=== PATIENT | female | born 1950 | race Caucasian/White ===

== ENCOUNTER 2021-01-18 01:13 | Emergency (ER) | payer MEDICARE, MEDICAID ==
[~2021-01-18] VITALS: Ht 162.6 cm; Wt 136.1 kg
[~2021-01-18 01:13] MED LIST: AMLO2.5T2 PO; ARIP10TA9; ARIP2TAB3 PO; LEVA15HF4 IH; METF-440 PO; METO25TA20; METO25TA4 PO; METO25TA6; METO50TA16; RIBA200T4 PO; RISP1TAB7 PO
[2021-01-18 01:45] VITALS: BP 160/90
[2021-01-18] MEDS ORDERED: ZOLP5TAB2 PO (02:00)
== END 2021-01-18 02:20 | disposition home or self-care (01) ==
LOC: ER 01:17
DX: G47.00 Insomnia, unspecified (principal); I10 Essential (primary) hypertension; J44.9 Chronic obstructive pulmonary disease, unspecified; E11.9 Type 2 diabetes mellitus without complications; F31.9 Bipolar disorder, unspecified; M19.90 Unspecified osteoarthritis, unspecified site; Z90.89 Acquired absence of other organs; Z90.49 Acquired absence of other specified parts of digestive tract; Z88.8 Allergy status to other drugs, medicaments and biological substances; Z60.2 Problems related to living alone; Z79.899 Other long term (current) drug therapy; Z79.84 Long term (current) use of oral hypoglycemic drugs

== ENCOUNTER 2021-02-05 23:00 | Emergency (ER) | payer MEDICARE, OTHER ==
[~2021-02-05] VITALS: Ht 167.6 cm; Wt 127.0 kg
[~2021-02-05 23:00] MED LIST changes: +ZOLP5TAB2 PO
--- NOTE | 2021-02-05 23:27 | NUR ---
PATIENT BIBRA60 FROM HOME SEEKING PLACMENT IN A CONVALESCENT HOME. PATIENT ALERT AND OREINTED X3. PATIENT WAS TRANSFERRED BY STRETCHER AND STATES SHE CANNOT AMBULATE LIKE BEFORE.
--- NOTE | 2021-02-05 23:57 | NUR ---
CALLED [facility]. PT NEEDS BARIATRIC BED.
--- NOTE | 2021-02-06 02:56 | NUR ---
PT AWAKE AND ALERT BREATHING EVEN AND UNLABORED. ALL V/S STABLE NO COMPLAINTS AT THIS TIME.
--- NOTE | 2021-02-06 05:29 | NUR ---
pT DISCHARGED HOME IN STABLE CONDITION. WRITTEN AND VERBAL AFTERCARE INSTRUCTIONS PROVIDED TO PATIENT AND SHE VERBALIZED UNDERSTANDING OF INSTRUCTIONS.PT ASSISTED TO TAXI WIT WHEELCHAIR WITHOUT INCIDENT. ALL V/S STABLE AT TIME OF PICKUP. ALL BELONGINGS WITH PATIENT AT TIME OF DISCHARGE.
[2021-02-06 05:32] VITALS: BP 128/77
[2021-02-07] MEDS ORDERED: OMEP20CA15 PO (11:21)
[2021-02-07] MEDS ORDERED: ASCO-352 PO (11:21)
[2021-02-07] MEDS ORDERED: PHYT100T PO (11:21)
[2021-02-07] MEDS ORDERED: OMEG-178 PO (11:21)
[2021-02-07] MEDS ORDERED: GABA-532 PO (11:21)
[2021-02-07] MEDS ORDERED: CHLO25TA2 PO (11:21)
[2021-02-07] MEDS ORDERED: TOPI50TA24 PO (11:21)
[2021-02-07] MEDS ORDERED: VIT1CAPS44 PO (11:21)
[2021-02-07] MEDS ORDERED: OLAN5TAB3 PO (11:21)
[2021-02-07] MEDS ORDERED: ACET-868 PO (11:21)
[2021-02-07] MEDS ORDERED: IRBE300T19 PO (11:21)
[2021-02-07] MEDS ORDERED: PRAZ2CAP2 PO (11:21)
[2021-02-07] MEDS ORDERED: CHOL100062 PO (11:21)
[2021-02-07] MEDS ORDERED: LOVA40TA2 PO (11:21)
[2021-02-07] MEDS ORDERED: MEMA5TAB42 PO (11:21)
[2021-02-07] MEDS ORDERED: ALLO100T PO (11:21)
[2021-02-11] MEDS ORDERED: Aspirin Ec PO (17:47)
== END 2021-02-06 05:32 | disposition home or self-care (01) ==
LOC: ER 23:02
DX: R52 Pain, unspecified (principal); Z88.8 Allergy status to other drugs, medicaments and biological substances; Z79.899 Other long term (current) drug therapy

== ENCOUNTER 2021-02-06 23:05 | Inpatient (IN) | payer MEDICARE, MEDICAID ==
[~2021-02-06] VITALS: Ht 165.1 cm; Wt 143.0 kg
--- NOTE | 2021-02-07 00:03 | NUR ---
EMT AT BEDSIDE FOR EKG
--- NOTE | 2021-02-07 00:10 | NUR ---
[facility] SWAB COLLECTED AND SENT TO LAB. PATIENT'S BELONGINGS LIST DONE.
[2021-02-07 00:37] LABS: BASOPHILS # (AUTO) 0.1 K/uL (0.0-0.2); BASOPHILS % (AUTO) 0.9 % (0.0-2.0); EOSINOPHILS % (AUTO) 4.7 % (0.0-6.0); HEMATOCRIT 42 % (33-45); HEMOGLOBIN 14.3 g/dL (11.5-14.8); LYMPHOCYTES # (AUTO) 1.7 K/uL (0.8-4.8); LYMPHOCYTES % (AUTO) 19.6 % (20.0-44.0); MEAN CORPUSCULAR HGB CONC 34 g/dl (31.0-36.0); MEAN CORPUSCULAR VOLUME 97 fL (82-100); MONOCYTES # (AUTO) 0.6 K/uL (0.1-1.30); MONOCYTES % (AUTO) 6.9 % (2.0-12.0); NEUTROPHILS # (AUTO) 5.9 K/uL (1.8-8.9); NEUTROPHILS % (AUTO) 67.9 % (43.0-81.0); PLATELET COUNT (AUTO) 184 K/uL (150-450); RED BLOOD CELL COUNT(AUTO) 4.32 MIL/uL (4.0-5.2); WHITE BLOOD COUNT (AUTO) 8.7 K/uL (4.3-11.0)
[2021-02-07 00:44] LABS: CALCIUM, SERUM 8.1 mg/dL (8.5-10.1); CARBON DIOXIDE 26 mmol/L (21-32); CHLORIDE 104 mmol/L (98-107); CREATININE 2.4 mg/dL (0.6-1.3); GLUCOSE 126 mg/dL (74-106); POTASSIUM 3.6 mmol/L (3.5-5.1); SODIUM SERUM 139 mmol/L (136-145); UREA NITROGEN, BLOOD 56 mg/dL (7-18)
--- NOTE | 2021-02-07 02:55 | NUR ---
FOLLOWED UP WITH [facility]
--- NOTE | 2021-02-07 04:05 | NUR ---
bed 115-1
[2021-02-07 04:20] VITALS: BP 141/92
--- NOTE | 2021-02-07 04:20 | NUR ---
MS RN ADMITTING NOTE PT TRANSPORTED BY STRETCHER TO UNIT AT THIS TIME FROM ED. RECEIVED REPORT FROM SLAVA JO @ ED. PT IS A/O X4, ABLE TO COMMUNICATE NEEDS. NO SOB NOTED, NO C/O PAIN AT THIS TIME. NO S/S OF ANY APPARENT DISTRESS NOTED. RESPIRATIONS EVEN AND UNLABORED. ACTIVE BOWEL SOUNDS AUSCULTATED THROUGHOUT, ABDOMEN IS NON DISTENDED. SKIN IS INTACT, WARM TO TOUCH. CAPILLARY REFILL < 3 SECS, PULSES PRESENT BILATERALLY, GOOD CIRCULATION NOTED. IV ACCESS NOTED IN R HAND G # 22, INTACT, PATENT AND FLUSHING WELL. PT'S BELONGINGS ACCOUNTED FOR AND KEPT AT BEDSIDES PER PT REQUEST. ASPIRATION PRECAUTIONS IN PLACE AND MAINTAINED AT ALL TIMES, BED IN LOWEST, LOCKED POSITION, SIDE RAILS UP X2, TABLE AND CALL LIGHT WITHIN REACH. WILL CONTINUE WITH PLAN OF CARE.
--- NOTE | 2021-02-07 04:25 | NUR ---
REPORT GIVE TO SABA PEDERSEN
[2021-02-07] MEDS ORDERED: ONDANSETRON HCL/PF 4 MG/2 ML VIAL IVP PRN (04:30)
[2021-02-07] MEDS ORDERED: Z GUARD REMEDY 2 OZ OINT TP PRN (04:30)
[2021-02-07] MEDS ORDERED: ACETAMINOPHEN 325 MG TABLET PO PRN (04:30)
[2021-02-07] MEDS ORDERED: IV NS 0.9% 1,000 ML IV PRN (04:30)
--- NOTE | 2021-02-07 07:23 | NUR ---
MS RN OPENING NOTES RECEIVED PATIENT RESTING IN BED. PATIENT IS A/O X4. PATIENT IS BREATHING EVENLY AND NONLABORED ON ROOM AIR. NO SIGNS OF DISTRESS NOTED. PATIENT DENIES PAIN OR DISCOMFORT AT THIS TIME. PATIENT HAS IV ACCESS TO R HAND # 22 PATENT AND INTACT. SAFETY MEASURES IN PLACE, BED LOW LOCKED AND CALL LIGHT WITHIN REACH. WILL CONTINUE TO MONITOR
[2021-02-07 08:00] VITALS: BP 132/77
[2021-02-07] MEDS ORDERED: METFORMIN 500 MG TABLET PO SCH (08:00)
[2021-02-07] MEDS: ARIPIPRAZOLE 2 MG TABLET PO SCH (08:18)
[2021-02-07] MEDS: risperiDONE 1 MG TABLET PO SCH (08:18)
[2021-02-07] MEDS: AMLODIPINE BESYLATE 2.5 MG TABLET PO SCH (08:18)
[2021-02-07] MEDS: ASPIRIN EC 81 MG TABLET.DR PO SCH (08:18)
[2021-02-07] MEDS: METOPROLOL SUCCINATE 25 MG TAB.SR.24H PO SCH (08:19)
[2021-02-07] MEDS: HEPARIN SODIUM, PORCINE 5000 UNITS/1 ML VIAL SQ SCH ×2 (08:25→21:31)
[2021-02-07] MEDS ORDERED: PRAZ2CAP2 PO (11:21)
[2021-02-07] MEDS ORDERED: TOPI50TA24 PO (11:21)
[2021-02-07] MEDS ORDERED: OLAN5TAB3 PO (11:21)
[2021-02-07] MEDS ORDERED: IRBE300T19 PO (11:21)
[2021-02-07] MEDS ORDERED: OMEG-178 PO (11:21)
[2021-02-07] MEDS ORDERED: VIT1CAPS44 PO (11:21)
[2021-02-07] MEDS ORDERED: MEMA5TAB42 PO (11:21)
[2021-02-07] MEDS ORDERED: LOVA40TA2 PO (11:21)
[2021-02-07] MEDS ORDERED: GABA-532 PO (11:21)
[2021-02-07] MEDS ORDERED: CHOL100062 PO (11:21)
[2021-02-07] MEDS ORDERED: PHYT100T PO (11:21)
[2021-02-07] MEDS ORDERED: ACET-868 PO (11:21)
[2021-02-07] MEDS ORDERED: CHLO25TA2 PO (11:21)
[2021-02-07] MEDS ORDERED: OMEP20CA15 PO (11:21)
[2021-02-07] MEDS ORDERED: ASCO-352 PO (11:21)
[2021-02-07] MEDS ORDERED: ALLO100T PO (11:21)
--- NOTE | 2021-02-07 14:09 | NUR ---
RN NOTE PATIENT WAS HAVING US OF KIDNEYS, NOTED WITH 800 ML OF URINE RETAINED, NOTIFIED WHO GAVE NEW ORDER TO PLACE PETE CATHETER, PETE PLACE 16 FR 10CC, 600 ML OUT, WILL CONTINUE TO MONITOR
[2021-02-07 16:10] VITALS: BP 130/64
[2021-02-07] MEDS: GABAPENTIN 100 MG CAPSULE PO SCH (16:57)
[2021-02-07] MEDS: OLANZAPINE 5 MG TABLET PO SCH (16:57)
[2021-02-07] MEDS: MEMANTINE HCL 5 MG TABLET PO SCH (16:57)
[2021-02-07] MEDS: ZOLPIDEM TARTRATE 5 MG TABLET PO SCH (18:00)
[2021-02-07] MEDS: ATORVASTATIN 10 MG TABLET PO SCH (18:06)
--- NOTE | 2021-02-07 18:57 | NUR ---
MS RN CLOSING NOTES PATIENT RESTING IN BED, AWAKE, A/O X4. REMAINS ON ROOM AIR, BREATHING EVEN AND NONLABORED. NO SIGNS OF ACUTE DISTRESS NOTED. PATIENT DENIES PAIN DISCOMFORT AT THIS TIME. ALL DUE MEDS GIVEN, TOLERATED WELL. REFUSED AMBIEN PER PT IT GIVES HER NIGHTMARES. WITH IV ACCESS ON R HAND # 22 PATENT AND INTACT, NS @75 ML/HOUR RUNNING. SAFETY MEASURES IN PLACE, BED LOW LOCKED AND CALL LIGHT WITHIN REACH. WILL ENDORSE TO NEXT SHIFT.
--- NOTE | 2021-02-07 19:45 | NUR ---
RN OPENING NOTES: RECEIVED PATIENT IN BED ALERT, ORIENTED X4, VERBALLY RESPONSIVE. ON ROOM AIR, NO SOB NOTED. BREATHING EVEN AND UNLABORED. NO C/O PAIN OR DISCOMFORT. NO ACUTE DISTRESS. IV ACCESS ON RT HAND #22G INTACT AND PATENT. RUNNING NS 75CC/HR. PETE CATHETER IN PLACE, INTACT W/ YELLOWISH URINE. NO HEMATURIA NOTED. ALL SAFETY MEASURE IN PLACE. BED IN LOW POSITION AND LOCKED. PLACE CALL LIGHT WITH IN REACH. WILL CONTINUE TO MONITOR
[2021-02-07 19:48] LABS: CHOLESTEROL 113 mg/dL (<200); HDL CHOLESTEROL 37 mg/dL (40-60); LDL 56 mg/dL (0-99); THYROID STIMULATING HORMONE 0.535 uIU/mL (0.358-3.74); TRIGLYCERIDES 151 mg/dL (30-150)
[2021-02-07 20:00] VITALS: BP 105/66
[2021-02-07 20:33] VITALS: BP 105/56
[2021-02-08 04:00] VITALS: BP 149/76
[2021-02-08 04:16] VITALS: BP 149/76
[2021-02-08 05:18] LABS: BASOPHILS % (AUTO) 0.5 % (0.0-2.0); EOSINOPHILS % (AUTO) 5.5 % (0.0-6.0); HEMATOCRIT 38 % (33-45); HEMOGLOBIN 12.7 g/dL (11.5-14.8); LYMPHOCYTES # (AUTO) 1.8 K/uL (0.8-4.8); MEAN CORPUSCULAR HGB CONC 34 g/dl (31.0-36.0); MEAN CORPUSCULAR VOLUME 99 fL (82-100); MONOCYTES # (AUTO) 0.6 K/uL (0.1-1.30); MONOCYTES % (AUTO) 8.4 % (2.0-12.0); NEUTROPHILS # (AUTO) 4.8 K/uL (1.8-8.9); NEUTROPHILS % (AUTO) 62.6 % (43.0-81.0); PLATELET COUNT (AUTO) 173 K/uL (150-450); RED BLOOD CELL COUNT(AUTO) 3.81 MIL/uL (4.0-5.2); WHITE BLOOD COUNT (AUTO) 7.6 K/uL (4.3-11.0)
[2021-02-08 05:24] LABS: CALCIUM, SERUM 8.3 mg/dL (8.5-10.1); CARBON DIOXIDE 24 mmol/L (21-32); CHLORIDE 105 mmol/L (98-107); CREATININE 2.4 mg/dL (0.6-1.3); GLUCOSE 100 mg/dL (74-106); PHOSPHORUS 4.8 mg/dL (2.5-4.9); SODIUM SERUM 139 mmol/L (136-145); UREA NITROGEN, BLOOD 55 mg/dL (7-18)
--- NOTE | 2021-02-08 06:20 | NUR ---
RN CLOSING NOTES: PATIENT IN BED ALERT, ORIENTED X4, VERBALLY RESPONSIVE. ON ROOM AIR, O2 SAT 99%. BREATHING EVEN AND UNLABORED. NO C/O PAIN OR DISCOMFORT. NO ACUTE DISTRESS. IV ACCESS ON RT HAND #22G INTACT AND PATENT. ALL DUE MEDS GIVEN PER ORDER AND PT TOLERATED WELL. PETE CATHETER IN PLACE, INTACT W/ YELLOWISH URINE, 1100 OUTPUT. NO HEMATURIA. ALL SAFETY MEASURE IN PLACE. BED IN LOW POSITION AND LOCKED. PLACE CALL LIGHT WITH IN REACH. WILL ENDORSE TO MORNING SHIFT NURSE.
[2021-02-08] MEDS: PANTOPRAZOLE 40 MG TABLET.DR PO SCH (07:44)
--- NOTE | 2021-02-08 07:58 | NUR ---
RN OPENING NOTES RECEIVED PATIENT IN BED ALERT, ORIENTED X4, VERBALLY RESPONSIVE. ON ROOM AIR, NO SOB NOTED. BREATHING EVEN AND UNLABORED. NO C/O PAIN OR DISCOMFORT. NO ACUTE DISTRESS. IV ACCESS ON RT HAND #22G INTACT AND PATENT. PETE CATHETER IN PLACE, INTACT W/ YELLOWISH URINE. NO HEMATURIA NOTED. ALL SAFETY MEASURE IN PLACE. BED IN LOW POSITION AND LOCKED. PLACE CALL LIGHT WITH IN REACH. WILL CONTINUE TO MONITOR.
[2021-02-08] MEDS: GABAPENTIN 100 MG CAPSULE PO SCH ×2 (09:10→16:18)
[2021-02-08] MEDS: ASPIRIN EC 81 MG TABLET.DR PO SCH (09:10)
[2021-02-08] MEDS: AMLODIPINE BESYLATE 2.5 MG TABLET PO SCH (09:11)
[2021-02-08] MEDS: ALLOPURINOL 100 MG TABLET PO SCH (09:11)
[2021-02-08] MEDS: MEMANTINE HCL 5 MG TABLET PO SCH ×2 (09:11→16:18)
[2021-02-08] MEDS: ASCORBIC ACID 500 MG TABLET PO SCH (09:11)
[2021-02-08] MEDS: OLANZAPINE 5 MG TABLET PO SCH (09:11)
[2021-02-08] MEDS: risperiDONE 1 MG TABLET PO SCH (09:11)
[2021-02-08] MEDS: METOPROLOL SUCCINATE 25 MG TAB.SR.24H PO SCH (09:12)
[2021-02-08] MEDS: ARIPIPRAZOLE 2 MG TABLET PO SCH (09:12)
[2021-02-08] MEDS: HEPARIN SODIUM, PORCINE 5000 UNITS/1 ML VIAL SQ SCH ×2 (09:13→20:50)
[2021-02-08 12:00] VITALS: BP 115/82
--- NOTE | 2021-02-08 14:27 | NUR ---
SS Consult: SS consult for discharge planning. Pt. Is a 70-year-old female. Pt. demonstrates adequate insight to the reason for hospitalization. Pt. was oriented x4, alert, and cooperative. During interview, pt. was capable of following directions, made appropriate eye-contact, and appeared well-groomed. Pt.s speech was at a normal rate. Pt.s mood was elevated. SW explored pt.s hx of mental health and substance abuse. Pt. reported no hx of mental health, substance abuse, suicidal or homicidal. Pt. denies auditory hallucinations, visual hallucinations, paranoia, or delusions. SW explored pt.s living situation. Per pt., she lives alone [[address] [place] [address]]. Plan: Per pt., she cannot care for herself at home anymore and wants placement. Pt. mentioned that she does not want a SNF but is considering [facility]. SW spoke with CM and they will arrange her placement once discharge. SW provided available resources and pt. denied interest at this time.
[2021-02-08] MEDS: ZOLPIDEM TARTRATE 5 MG TABLET PO SCH (18:00)
[2021-02-08] MEDS: ATORVASTATIN 10 MG TABLET PO SCH (18:00)
--- NOTE | 2021-02-08 19:09 | NUR ---
RN CLOSING NOTES PATIENT IN BED ALERT, ORIENTED X4, VERBALLY RESPONSIVE. ON ROOM AIR, O2 SAT 99%. BREATHING EVEN AND UNLABORED. NO C/O PAIN OR DISCOMFORT. NO ACUTE DISTRESS. IV ACCESS ON RT HAND #22G INTACT AND PATENT. ALL DUE MEDS GIVEN PER ORDER AND PT TOLERATED WELL. PETE CATHETER IN PLACE, INTACT W/ YELLOWISH URINE, 1100 OUTPUT. NO HEMATURIA. ALL SAFETY MEASURE IN PLACE. BED IN LOW POSITION AND LOCKED. PLACE CALL LIGHT WITH IN REACH. WILL ENDORSE TO PIG BREEDER NURSE.
[2021-02-08 20:00] VITALS: BP 134/73
[2021-02-09 04:00] VITALS: BP 152/69
--- NOTE | 2021-02-09 07:37 | NUR ---
RN NOTES RECEIVED CARE OF PATIENT WHILE PATIENT IN BED, ALERT, ORIENTED X4, VERBALLY RESPONSIVE. ON ROOM AIR, O2 SAT 97%. BREATHING EVEN AND UNLABORED. NO C/O PAIN OR DISCOMFORT. NO ACUTE DISTRESS. IV ACCESS ON RT HAND #22G INTACT AND PATENT. PETE CATHETER IN PLACE, INTACT. NO HEMATURIA. ALL SAFETY MEASURE IN PLACE. BED IN LOW POSITION AND LOCKED. PLACED CALL LIGHT WITH IN REACH. WILL CONTINUE TO MONITOR FOR ANY CHANGES.
[2021-02-09] MEDS: PANTOPRAZOLE 40 MG TABLET.DR PO SCH (07:57)
[2021-02-09] MEDS: GABAPENTIN 100 MG CAPSULE PO SCH ×2 (08:21→18:03)
[2021-02-09] MEDS: ARIPIPRAZOLE 2 MG TABLET PO SCH (08:21)
[2021-02-09] MEDS: OLANZAPINE 5 MG TABLET PO SCH ×2 (08:21→21:55)
[2021-02-09] MEDS: MEMANTINE HCL 5 MG TABLET PO SCH (08:21)
[2021-02-09] MEDS: ALLOPURINOL 100 MG TABLET PO SCH (08:22)
[2021-02-09] MEDS: risperiDONE 1 MG TABLET PO SCH (08:22)
[2021-02-09] MEDS: ASCORBIC ACID 500 MG TABLET PO SCH (08:23)
[2021-02-09] MEDS: ASPIRIN EC 81 MG TABLET.DR PO SCH (08:23)
[2021-02-09] MEDS: METOPROLOL SUCCINATE 25 MG TAB.SR.24H PO SCH (09:01)
[2021-02-09] MEDS: AMLODIPINE BESYLATE 2.5 MG TABLET PO SCH (09:01)
[2021-02-09] MEDS: HEPARIN SODIUM, PORCINE 5000 UNITS/1 ML VIAL SQ SCH (09:03)
--- NOTE | 2021-02-09 11:04 | NUR ---
RN OPENING NOTES RECEIVED PATIENT IN BED ALERT, ORIENTED X4, VERBALLY RESPONSIVE. ON ROOM AIR, NO SOB NOTED. BREATHING EVEN AND UNLABORED. NO C/O PAIN OR DISCOMFORT. NO ACUTE DISTRESS. IV ACCESS ON RT HAND #22G INTACT AND PATENT. PETE CATHETER IN PLACE, INTACT W/ YELLOWISH URINE. NO HEMATURIA NOTED. ALL SAFETY MEASURES IN PLACE. BED IN LOW POSITION AND LOCKED. PLACE CALL LIGHT WITH IN REACH. SIDE RAILS UP X2. WILL CONTINUE TO MONITOR.
[2021-02-09 12:00] VITALS: BP 133/63
[2021-02-09] MEDS: ZOLPIDEM TARTRATE 5 MG TABLET PO SCH (18:00)
[2021-02-09] MEDS: ATORVASTATIN 10 MG TABLET PO SCH (18:04)
--- NOTE | 2021-02-09 19:30 | NUR ---
RN CLOSING NOTES PATIENT IN BED ALERT, ORIENTED X4, VERBALLY RESPONSIVE. ON ROOM AIR, O2 SAT 99%. BREATHING EVEN AND UNLABORED. NO C/O PAIN OR DISCOMFORT. NO ACUTE DISTRESS. IV ACCESS ON RT HAND #22G INTACT AND PATENT. ALL DUE MEDS GIVEN PER ORDER AND PT TOLERATED WELL. PETE CATHETER IN PLACE, INTACT W/ SLIGHT HEMATURIA NOTED. ALL SAFETY MEASURE IN PLACE. BED IN LOW POSITION AND LOCKED. PLACE CALL LIGHT WITH IN REACH. WILL ENDORSE TO LICENSED MASSAGE THERAPIST NURSE.
--- NOTE | 2021-02-09 19:40 | NUR ---
RN OPENING NOTES: RECEIVED PATIENT IN BED SITTING POSITION, ALERT, ORIENTED X4, VERBALLY RESPONSIVE. ON ROOM AIR, NO SOB NOTED. BREATHING EVEN AND UNLABORED. NO C/O PAIN OR DISCOMFORT. NO ACUTE DISTRESS. IV ACCESS ON RT HAND #22G INTACT AND PATENT. PETE CATHETER IN PLACE, NOTED HEMATURIA. MADE AWARE DROliverio CRAPS DEALER DR. THOMPSON. WAITING FOR CALL BACK. ALL SAFETY MEASURE IN PLACE. BED IN LOW POSITION AND LOCKED. PLACE CALL LIGHT WITH IN REACH. WILL CONTINUE TO MONITOR
[2021-02-09 20:00] VITALS: BP 146/93
--- NOTE | 2021-02-09 20:42 | NUR ---
RN NOTES: DR. THOMPSON TEXT BACK. TO KEEP THE PETE CATHETER ON PLACE DUE TO URINARY RETENTION. HOLD THE HEPARIN AND NEW ORDER FOR [facility] COLLECTION. ORDER NOTED AND CARRIED OUT.
[2021-02-10 02:46] LABS: BILIRUBIN,URINE NEGATIVE (NEGATIVE); COLOR,URINE YELLOW (YELLOW); LEUKOCYTE ESTERASE ,URINE NEGATIVE (NEGATIVE); NITRITE, URINE NEGATIVE (NEGATIVE); PROTEIN,URINE NEGATIVE (NEGATIVE); UGLUCOSE NEGATIVE (NEGATIVE); UROBILINOGEN,URINE 0.2 EU/dL (0.2)
[2021-02-10 02:55] LABS: RBC,URINE TOO NUMEROUS TO COUN /HPF (0-2)
[2021-02-10 02:56] LABS: BACTERIA,URINE Few /HPF (None Seen); SQUAMOUS EPITHELIAL CELL,UR None Seen /HPF (None Seen)
[2021-02-10 04:00] VITALS: BP 159/84
[2021-02-10 06:35] LABS: BASOPHILS % (AUTO) 0.4 % (0.0-2.0); HEMATOCRIT 39 % (33-45); HEMOGLOBIN 13.3 g/dL (11.5-14.8); LYMPHOCYTES # (AUTO) 1.4 K/uL (0.8-4.8); LYMPHOCYTES % (AUTO) 17.4 % (20.0-44.0); MEAN CORPUSCULAR HGB CONC 34 g/dl (31.0-36.0); MEAN CORPUSCULAR VOLUME 98 fL (82-100); MONOCYTES # (AUTO) 0.8 K/uL (0.1-1.30); MONOCYTES % (AUTO) 9.9 % (2.0-12.0); NEUTROPHILS # (AUTO) 5.4 K/uL (1.8-8.9); NEUTROPHILS % (AUTO) 66.3 % (43.0-81.0); PLATELET COUNT (AUTO) 182 K/uL (150-450); RED BLOOD CELL COUNT(AUTO) 3.96 MIL/uL (4.0-5.2); WHITE BLOOD COUNT (AUTO) 8.2 K/uL (4.3-11.0)
--- NOTE | 2021-02-10 06:44 | NUR ---
RN CLOSING NOTES: PATIENT IN BED SLEEPING AT THIS MOMENT, BUT EASILY AROUSABLE, ALERT, ORIENTED X4, VERBALLY RESPONSIVE. ON ROOM AIR, O2 SAT 97%. NO SOB. BREATHING EVEN AND UNLABORED. NO C/O PAIN OR DISCOMFORT. NO ACUTE DISTRESS. IV ACCESS ON RT HAND #22G INTACT AND PATENT. PETE CATHETER IN PLACE, STILL NOTED SCANT OF BLEEDING. ENCOURAGE PT TO INCREASE FLUID INTAKE. URINALYSIS DONE. ALL DUE MEDS GIVEN, HEPARIN ON HOLD DUE TO HEMATURIA. ALL SAFETY MEASURE IN PLACE. BED IN LOW POSITION AND LOCKED. PLACE CALL LIGHT WITH IN REACH. WILL ENDORSE TO MORNING SHIFT NURSE.
[2021-02-10 07:12] LABS: CALCIUM, SERUM 8.9 mg/dL (8.5-10.1); CARBON DIOXIDE 27 mmol/L (21-32); CHLORIDE 104 mmol/L (98-107); CREATININE 2.1 mg/dL (0.6-1.3); GLUCOSE 106 mg/dL (74-106); MAGNESIUM 1.8 mg/dL (1.8-2.4); PHOSPHORUS 4.6 mg/dL (2.5-4.9); POTASSIUM 4.2 mmol/L (3.5-5.1); SODIUM SERUM 141 mmol/L (136-145); UREA NITROGEN, BLOOD 44 mg/dL (7-18)
[2021-02-10] MEDS: AMLODIPINE BESYLATE 2.5 MG TABLET PO SCH (08:23)
[2021-02-10] MEDS: GABAPENTIN 100 MG CAPSULE PO SCH ×2 (08:23→17:15)
[2021-02-10] MEDS: ASPIRIN EC 81 MG TABLET.DR PO SCH (08:23)
[2021-02-10] MEDS: ALLOPURINOL 100 MG TABLET PO SCH (08:24)
[2021-02-10] MEDS: ASCORBIC ACID 500 MG TABLET PO SCH (08:24)
[2021-02-10] MEDS: METOPROLOL SUCCINATE 25 MG TAB.SR.24H PO SCH (08:24)
[2021-02-10] MEDS: PANTOPRAZOLE 40 MG TABLET.DR PO SCH (08:24)
[2021-02-10] MEDS ORDERED: ARIPIPRAZOLE 2 MG TABLET PO SCH (09:00)
[2021-02-10] MEDS: ARIPIPRAZOLE 5 MG TABLET PO SCH (09:08)
--- NOTE | 2021-02-10 09:34 | NUR ---
RN OPENING NOTE PATIENT IN BED SLEEPING AT THIS MOMENT, BUT EASILY AROUSABLE, ALERT, ORIENTED X4, VERBALLY RESPONSIVE. ON ROOM AIR, O2 SAT 97%. NO SOB. BREATHING EVEN AND UNLABORED. IV ACCESS ON RT HAND #22G INTACT AND PATENT. PETE CATHETER IN PLACE, ENCOURAGE PT TO INCREASE FLUID. ALL SAFETY MEASURE IN PLACE. BED IN LOW POSITION AND LOCKED. PLACE CALL LIGHT WITH IN REACH.
--- NOTE | 2021-02-10 09:47 | NUR ---
RN NOTE REPORT REC'D AT [facility] FROM ELIAN PEDERSEN FOR VENUS. PT IS AWAKE ALERT, ORIENTED X4. IN NO ACUTE DISTRESS. BREATHING UNLABORED. NO C/O CHEST PAIN. SL TO RH G22 PATENT AND INTACT. PT STATES THAT SHE HAD NO BM FOR 6 DAYS. NEEDS STOOL SPOFTENER SHE STATES. PETE CATHETER TO GRAVITY DRAINING YELLOW URINE.
[2021-02-10] MEDS ORDERED: BISACODYL SUPP (10 MG) 10 MG/SUPP.RECT SUPP.RECT RC PRN (10:30)
--- NOTE | 2021-02-10 10:39 | NUR ---
RN NOTE MESSAGE REC'D BY DR. SOW RE: CONSTIPATION WITH ORDER NOTED.
--- NOTE | 2021-02-10 11:00 | NUR ---
RN NOTE [facility] SUPPOSITORY GIVEN SC FOR CONSTIPATION. REPOSITIONED PATIENT FOR COMFORT. NEEDS ATTENDED PROMPTLY.
[2021-02-10 16:00] VITALS: BP 134/83
[2021-02-10] MEDS: ATORVASTATIN 10 MG TABLET PO SCH (17:16)
[2021-02-10] MEDS: DOCUSATE SODIUM 100 MG CAPSULE PO SCH (17:25)
[2021-02-10] MEDS: ZOLPIDEM TARTRATE 5 MG TABLET PO SCH (17:38)
--- NOTE | 2021-02-10 18:43 | NUR ---
RN NOTE PATIENT IS LYING IN BED. NOT IN RESPIRATORY DISTRESS. DENIES CHEST PAIN OR SOB. PETE CATH TO GRAVITY DRAINING CLEAR YELLOW URINE. SL TO RH PATENT AND INTACT. REPOSITIONED FOR COMFORT. ALL NEEDS ATTENDED. SAFETY PRECAUTIONS IN PLACE. CALL LIGHT WITHIN REACH. WILL ENDORSE TO NOC RN FOR VENUS.
--- NOTE | 2021-02-10 19:40 | NUR ---
RN OPENING NOTES: RECEIVED PATIENT IN BED SITTING POSITION, ALERT, ORIENTED X4, VERBALLY RESPONSIVE. ON ROOM AIR, NO SOB. BREATHING EVEN AND UNLABORED. NO C/O PAIN OR DISCOMFORT. NO ACUTE DISTRESS. IV ACCESS ON RT HAND #22G INTACT AND PATENT. PETE CATHETER IN PLACE W/ YELLOWISH URINE. NO HEMATURIA. ALL SAFETY MEASURE IN PLACE. BED IN LOW POSITION AND LOCKED. PLACE CALL LIGHT WITH IN REACH. WILL CONTINUE TO MONITOR
[2021-02-10 20:00] VITALS: BP 147/81
[2021-02-10] MEDS: OLANZAPINE 5 MG TABLET PO SCH (21:18)
--- NOTE | 2021-02-10 21:40 | NUR ---
RN NOTES: GAVE REPORT TO [facility] NURSE MINOR. PT PCR NEGATIVE. TRANSFERRED PT TO [facility] IN STABLE CONDITION. V/S STABLE. COOPERATIVE WITH CARE. NO RESPIRATORY DISTRESS NOTED. DUE MED GIVEN PER ORDER AND TOLERATED WELL. URINE OUTPUT IN PETE CATHETER 500ML. SCANT AMOUNT OF HEMATURIA NOTED. ENDORSED TO THE NURSE.
--- NOTE | 2021-02-10 21:41 | NUR ---
MS RN NOTES: RECEIVED REPORT FROM JOSÉ MIGUEL RN JEFF. PATIENT BROUGHT UP TO MS FLOOR VIA BED AND RECEIVED AT APPROXIMATELY 2150. INTRODUCED MYSELF TO PATIENT AT BEDSIDE. PATIENT COMMUNICATIVE, A&OX4. NAD. IN STABLE CONDITION. REQUESTING WATER AND SNACKS. SNACKS AND WATER GIVEN PER REQUEST. PATIENT EATING AND DRINKING INDEPENDENTLY AND WITHOUT COMPLICATION. PATIENT ADVISED ON REPOSITIONING AND REDISTRIBUTING WEIGHT TO PREVENT SKIN BREAKDOWN. PATIENT VERBALIZES UNDERSTANDING AND DEMONSTRATES REPOSITIONING WITH MINIMAL ASSIST. SKIN OBSERVED TO BE INTACT THROUGHOUT AT THIS TIME. SL TO R HAND FLUSHED AND PATENT. DRESSING C/D/I.
[2021-02-11] VITALS: BP 108/54
[2021-02-11 06:42] LABS: BASOPHILS # (AUTO) 0.1 K/uL (0.0-0.2); BASOPHILS % (AUTO) 0.6 % (0.0-2.0); EOSINOPHILS % (AUTO) 6.8 % (0.0-6.0); HEMATOCRIT 39 % (33-45); HEMOGLOBIN 13.4 g/dL (11.5-14.8); LYMPHOCYTES # (AUTO) 1.8 K/uL (0.8-4.8); LYMPHOCYTES % (AUTO) 19.8 % (20.0-44.0); MEAN CORPUSCULAR HGB CONC 34 g/dl (31.0-36.0); MEAN CORPUSCULAR VOLUME 98 fL (82-100); MONOCYTES # (AUTO) 0.7 K/uL (0.1-1.30); MONOCYTES % (AUTO) 8.1 % (2.0-12.0); NEUTROPHILS # (AUTO) 5.9 K/uL (1.8-8.9); NEUTROPHILS % (AUTO) 64.7 % (43.0-81.0); PLATELET COUNT (AUTO) 195 K/uL (150-450); WHITE BLOOD COUNT (AUTO) 9.1 K/uL (4.3-11.0)
[2021-02-11 07:34] LABS: CALCIUM, SERUM 8.9 mg/dL (8.5-10.1); CARBON DIOXIDE 23 mmol/L (21-32); CHLORIDE 102 mmol/L (98-107); GLUCOSE 125 mg/dL (74-106); POTASSIUM 3.9 mmol/L (3.5-5.1); SODIUM SERUM 138 mmol/L (136-145); UREA NITROGEN, BLOOD 42 mg/dL (7-18)
[2021-02-11 07:35] LABS: MAGNESIUM 1.7 mg/dL (1.8-2.4); PHOSPHORUS 5.2 mg/dL (2.5-4.9)
--- NOTE | 2021-02-11 07:42 | NUR ---
MS RN CLOSING NOTES: REPORTED OFF TO ONCOMING RN. PATIENT IN NAD AND VSS AT THIS TIME. ALERT AND ORIENTED TO BASELINE. CALM AND COMMUNICATIVE.
--- NOTE | 2021-02-11 07:52 | NUR ---
RN OPENING NOTES PATIENT IN BED RESTING, AWAKE. A/O X4. NO S/S OF PAIN NOTED AT THIS TIME. ON ROOM AIR, NO DISTRESS OR SHORTNESS OF BREATH NOTED. IV ACCESS R HAND, INTACT AND PATENT. FALL AND SAFETY MEASURES IN PLACE, BED ALARM ON, BED IN LOW AND LOCK POSITION, CALL LIGHT AND TABLE WITHIN EASY REACH, SIDE RAILS UP X2. WILL CONTINUE TO MONITOR.
[2021-02-11 08:00] VITALS: BP 165/78
[2021-02-11] MEDS: METOPROLOL SUCCINATE 25 MG TAB.SR.24H PO SCH (09:00)
[2021-02-11] MEDS ORDERED: ZOLPIDEM TARTRATE 5 MG TABLET PO PRN (09:00)
[2021-02-11] MEDS: DOCUSATE SODIUM 100 MG CAPSULE PO SCH ×2 (09:05→17:21)
[2021-02-11] MEDS: ASPIRIN EC 81 MG TABLET.DR PO SCH (09:06)
[2021-02-11] MEDS: ASCORBIC ACID 500 MG TABLET PO SCH (09:06)
[2021-02-11] MEDS: PANTOPRAZOLE 40 MG TABLET.DR PO SCH (09:07)
[2021-02-11] MEDS: GABAPENTIN 100 MG CAPSULE PO SCH ×2 (09:07→17:21)
[2021-02-11] MEDS: ALLOPURINOL 100 MG TABLET PO SCH (09:07)
[2021-02-11] MEDS: AMLODIPINE BESYLATE 2.5 MG TABLET PO SCH (09:08)
[2021-02-11] MEDS: ARIPIPRAZOLE 5 MG TABLET PO SCH (09:13)
[2021-02-11] MEDS ORDERED: Magnesium 1GM/D5W 100ML PREMIX 100 ML IV SCH (10:30)
[2021-02-11 16:00] VITALS: BP 147/76
[2021-02-11] MEDS: ATORVASTATIN 10 MG TABLET PO SCH (17:21)
[2021-02-11] MEDS ORDERED: Aspirin Ec PO (17:47)
--- NOTE | 2021-02-11 19:03 | NUR ---
RN CLOSING NOTES PATIENT IN BED RESTING, AWAKE. A/O X4. NO S/S OF PAIN NOTED AT THIS TIME. ON ROOM AIR, NO DISTRESS OR SHORTNESS OF BREATH NOTED. IV ACCESS R HAND, INTACT AND PATENT. FALL AND SAFETY MEASURES IN PLACE, BED ALARM ON, BED IN LOW AND LOCK POSITION, CALL LIGHT AND TABLE WITHIN EASY REACH, SIDE RAILS UP X2. WILL ENDORSE TO AUTO SERVICE REPRESENTATIVE.
--- NOTE | 2021-02-11 20:30 | NUR ---
SPECIAL AGENT SECRET SERVICE NOTE PATIENT IS BEING DISCHARGED TO [facility] SNF FOR CONTINUITY OF CARE. PATIENT IS BEING PICKED UP BY [facility]. PATIENT IS ALERT AND ORIENTED X 4. ABLE TO MAKE NEEDS KNOWN. DENIES PAIN AT THIS TIME. CONTINUES ON ROOM AIR WITH NO S/SX OF RESPIRATORY DISTRESS NOTED. VS AT DISCHARGE: BP 141/79 HR 70 RR 18 T 97.8 O2 SAT 98% ON ROOM AIR. IV ACCESS TO RIGHT HAND #22G INTACT AND PATENT - IV IN PLACE FOR TRANSFER TO SNF. PETE CATHETER IN PLACE FOR URINARY RETENTION DRAINING CLEAR, YELLOW URINE. PATIENT IS ABLE TO TRANSFER WITH ASSIST. SKIN AT DISCHARGE IS INTACT. ALL DISCHARGE PAPERWORK REVIEWED WITH PATIENT AND SIGNED. [facility] AND ACCOUNTED FOR. ID BAND REMOVED. PATIENT DISCHARGED WITH ALL HOME MEDS SHE HAD BROUGHT IN. REPORT GIVEN TO GERMAN AT [facility]. PATIENT DISCHARGED AT APPROX. 2030 WITH ALL BELONGINGS AND PAPERWORK.
== END 2021-02-11 20:50 | DRG 421 ==
LOC: ER 23:10 → MEDSG1 02-07 03:59 → MED 02-10 21:47
PROVIDERS: ADMIT Nurse Practitioner Acute Care; ATTEND Nurse Practitioner Acute Care
DX: R62.7 Adult failure to thrive (principal); N17.0 Acute kidney failure with tubular necrosis; I50.33 Acute on chronic diastolic (congestive) heart failure; E44.0 Moderate protein-calorie malnutrition; D68.69 Other thrombophilia; F31.63 Bipolar disorder, current episode mixed, severe, without psychotic features; I27.20 Pulmonary hypertension, unspecified; Z68.43 Body mass index [BMI] 50.0-59.9, adult; I13.0 Hypertensive heart and chronic kidney disease with heart failure and stage 1 through stage 4 chronic kidney disease, or unspecified chronic kidney disease; E83.51 Hypocalcemia; E11.22 Type 2 diabetes mellitus with diabetic chronic kidney disease; J44.9 Chronic obstructive pulmonary disease, unspecified; N18.9 Chronic kidney disease, unspecified; E66.01 Morbid (severe) obesity due to excess calories; R53.1 Weakness; Z73.6 Limitation of activities due to disability
CPT/HCPCS: 36415; 71045-TC; 76770-TC; 80048-TC; 80061-TC; 81001; 83735-TC; 84100-TC; 84443-TC; 84484-TC; 85025-TC; 87081-TC; 93307-TC; 97112-TC; 97116-TC; 97530-TC; G0378; J1644; J3475; J7050; U0003